=== PATIENT | female | born 1955 | race Caucasian/White ===

== ENCOUNTER 2025-03-03 05:37 | Day surgery (SDC) | payer MEDICARE ==
[2025-02-27 09:13] VITALS: BMI 28.3
[2025-03-03 06:28] LABS: Hematocrit 38.7 % (34.9-44.5); Hemoglobin 12.8 g/dL (12.0-15.5)
[2025-03-03] MEDS ORDERED: Lidocaine 1% w/Epinephrine 1:200K 30 ML VIAL ONE (06:33)
[2025-03-03] MEDS ORDERED: Lidocaine 1% PF 5 ML VIAL ONE (06:35)
[2025-03-03] MEDS ORDERED: Rocuronium Bromide 10 MG/ML (10ML VIAL) ONE (06:35)
[2025-03-03] MEDS ORDERED: SUGAMMADEX SODIUM 200 MG/2 ML VIAL ONE (06:35)
[2025-03-03] MEDS ORDERED: Ondansetron PF 4 MG/2 ML Vial ONE ×2 (06:35→08:48)
[2025-03-03] MEDS ORDERED: PROPOFOL 20 ML ONE (06:36)
[2025-03-03 06:42] LABS: Anion Gap 15 mmol/L (10-20); BUN (Urea Nitrogen) 14 mg/dL (9.8-20.1); Calc. Creatinine Clearance 74 mL/min (70-130); Calcium 9.1 mg/dL (7.8-10.44); Carbon Dioxide 25 mmol/L (23-31); Chloride 110 mmol/L (98-107); Glucose 86 mg/dL (80-115); Potassium 3.7 mmol/L (3.5-5.1); Sodium 146 mmol/L (136-145)
== END 2025-03-03 09:35 | disposition home or self-care (01) ==
LOC: CSHSDC 05:37
PROVIDERS: ATTEND Otolaryngology
PROC: 0GTG0ZZ Resection of Left Thyroid Gland Lobe, Open Approach (ICD-10-PCS; principal; 2025-03-03)
PROC: 0GSM0ZZ Reposition Left Superior Parathyroid Gland, Open Approach (ICD-10-PCS; 2025-03-03)
DX: E04.1 Nontoxic single thyroid nodule (principal); I10 Essential (primary) hypertension; H90.3 Sensorineural hearing loss, bilateral; F41.9 Anxiety disorder, unspecified; F32.A Depression, unspecified; Z87.891 Personal history of nicotine dependence; Z88.5 Allergy status to narcotic agent; Z91.038 Other insect allergy status
CPT/HCPCS: 60220; 80048; 85014; 85018; J1100; J2250; J2405; J2704; J3010; 88307